=== PATIENT | male | born 1960 | race Hispanic/Latino ===

== ENCOUNTER 2019-04-22 14:31 | Emergency (ER) | payer SELFPAY ==
[2019-04-22 14:50] LABS: #Basophils 0.1 thou/uL (0.0-0.2); #Eosinphils 0.1 thou/uL (0.0-0.7); #Lymphocytes 1.5 thou/uL (1.20-3.40); #Monocytes 0.5 thou/uL (0.11-0.59); #Neutrophils 4.3 thou/uL (1.40-6.50); %Eosinophils 1.6 % (0.0-10.0); %Lymphocytes 23.9 % (21.0-51.0); %Monocytes 7.1 % (0.0-10.0); %Neutrophils 66.4 % (42.0-75.0); Hemoglobin 14.8 g/dL (14.0-18.0); INR-International Normal Ratio 0.9; Mean Corpuscular Hemoglobin 30.9 pg (27.0-31.0); Mean Corpuscular Volume 88.1 fL (78.0-98.0); Mean Platelet Volume 5.6 fL (7.4-10.4); PTT 27.4 SEC (22.9-36.1); Platelet Count 265 thou/uL (130-400); Prothrombin Time 12.6 SEC (12.0-14.7); RBC Distribution Width 11.3 % (11.5-14.5); Red Blood Cell (RBC) Count 4.79 mill/uL (4.70-6.10); White Blood Cell (WBC) Count 6.4 thou/uL (4.8-10.8)
--- NOTE | 2019-04-22 14:55 | CT ---
EXAM: Brain CTWithout contrast: HISTORY: Stroke protocol, left-sided weakness, slurred speech COMPARISON: 06/15/2014 FINDINGS: Subtle right centrum semiovale chronic white matter ischemic change. No focal mass or midline shift. No intra or extra-axial hemorrhage. Sinuses and mastoids are clear of acute process. IMPRESSION: No mass or bleed or other significant acute intracranial process. Findings discussed with Dr. Rush in the emergency room at 2:50 PM CODE CR
[2019-04-22 15:00] LABS: ALT (SGPT) 25 U/L (8-55); AST (SGOT) 19 U/L (5-34); Albumin 4.2 g/dL (3.5-5.0); Alkaline Phosphatase 94 U/L (40-150); Anion Gap 18 mmol/L (10-20); BUN (Urea Nitrogen) 14 mg/dL (8.4-25.7); Bilirubin, Total 0.3 mg/dL (0.2-1.2); Calc. Creatinine Clearance 0 mL/min (70-130); Calcium 9.2 mg/dL (7.8-10.44); Carbon Dioxide 25 mmol/L (22-29); Chloride 97 mmol/L (98-107); Estimated GFR-MDRD 61; Globulin 2.9 g/dL (2.4-3.5); Glucose 429 mg/dL (70-105); Potassium 3.5 mmol/L (3.5-5.1); Protein, Total 7.1 g/dL (6.0-8.3); Sodium 136 mmol/L (136-145)
[2019-04-22] MEDS ORDERED: Aspirin 300 MG Suppository ONE (15:29)
== END 2019-04-22 15:52 | disposition short-term general hospital (02) ==
LOC: NAV ERS 14:31
DX: I63.9 Cerebral infarction, unspecified (principal); I10 Essential (primary) hypertension; E11.65 Type 2 diabetes mellitus with hyperglycemia; Z79.82 Long term (current) use of aspirin
CPT/HCPCS: 36416; 70450; 80053; 84484; 85025; 85610; 85730; 93005; 94760